=== PATIENT | female | born 1960 | race African-American/Black ===

== ENCOUNTER 2017-08-28 21:14 | Emergency (ER) | payer OTHER ==
[~2017-08-28] VITALS: Ht 154.9 cm; Wt 89.4 kg
[2017-08-28 22:19] LABS: ABSOLUTE BASOPHIL COUNT 0 /CUMM (0.0-0.2); ABSOLUTE EOSINOPHIL COUNT 0.1 /CUMM (0.0-0.7); ABSOLUTE LYMPH COUNT 1.7 /CUMM (1.2-3.4); ABSOLUTE MONOCYTE COUNT 0.5 /CUMM (0.10-0.60); BASOPHIL % 0.6 % (0.0-2.0); EOSINOPHIL % 1.9 % (0-5); GRANULOCYTE % 46.1 % (42.2-75.2); HEMATOCRIT 38.2 % (37-47); MEAN CORPUSCULAR HGB CONC 32.8 G/DL (33.0-37.0); MEAN CORPUSCULAR VOLUME 88.4 FL (81.0-99.0); MEAN PLATELET VOLUME 8.1 FL (7.4-10.4); PLATELET COUNT 280 /CUMM (130-400); RBC DISTRIBUTION WIDTH 14.4 % (11.5-14.5); RED BLOOD CELL CT 4.31 /CUMM (4.20-5.40); WHITE BLOOD CELL COUNT 4.4 /CUMM (4.8-10.8)
--- NOTE | 2017-08-28 23:29 | ED GENERAL ADULT ---
History of Present Illness General Chief Complaint: General Adult Stated Complaint: HIGH BLOOD PRESSURE Source: patient, old records Exam Limitations: no limitations Vital Signs & Intake/Output Vital Signs & Intake/Output Vital Signs Date Time Temp Pulse Resp B/P B/P Pulse O2 O2 Flow FiO2 Mean Ox Delivery Rate 08/29 0017 97 Room Air 08/28 2348 97.8 79 20 167/86 96 Room Air 08/28 2144 99.0 90 18 175/95 97 Room Air ED Intake and Output 08/29 0000 08/28 1200 Intake Total Output Total Balance Patient 197 lb Weight Weight Reported by Patient Measurement Method Allergies Coded Allergies: No Known Allergies (08/28/17) Triage Note: 57F STATES "MY BLOOD PRESSURE KEEPS GOING UP" 160/93 REPORTED HIGHEST. TAKES BENICAR AND BYSTOLIC, LAST TAKEN TODAY. DENIES SOB, +DISCOMFORT TO CHEST. DENIES N/V/D. DENIES FEVERS/CHILLS. DENIES HEADACHE, CHANGE IN VISION OR DIZZINESS. FOCAL NEUROS INTACT. SEES DR OZUNA PT IS HIV+. Triage Nurses Notes Reviewed? yes Onset: Abrupt Duration: day(s): (1), constant Timing: recent history Injury Environment: home Severity: mild Severity Numbers: 1 No Modifying Factors: none Associated Symptoms: denies HPI: 57-year-old female history of hypertension diabetes HIV presents to ER for evaluation stating that she took her blood pressure tonight and it was systolic 160s to 170s. She states she's been compliant with taking her Benicar and bySystolic twice a day she took her dose prior to coming in tonight. The patient states that it normally is 120 to 130 systolic but over the past few days it is been high after she was changed to the generic form of these medications. She also states over this weekend she has been eating very healthy including seafood soy sauce and soups. She denies any chest pain shortness of breath blurry vision headache nausea vomiting numbness or tingling or weakness to her extremities she is otherwise without any complaints currently. (Balbina HARVEY,Cristopher) Past History Travel History Traveled to [place] past 21 day No Medical History Any Pertinent Medical History? see below for history Neurological: NONE EENT: NONE Cardiovascular: hypertension Respiratory: NONE Gastrointestinal: NONE Hepatic: NONE Renal: NONE Musculoskeletal: NONE Psychiatric: NONE Endocrine: diabetes Surgical History Surgical History: none Psychosocial History What is your primary language Swazi Tobacco Use: Never used ETOH Use: denies use Illicit Drug Use: denies illicit drug use Family History Hx Contributory? No (Cristopher Schreiber) Review of Systems Review of Systems Constitutional: Reports: see HPI. Comments Review of systems: See HPI, All other systems negative. Constitutional, no chills no fever, HEENT: no sore throat no congestion, no ear pain Cardiovascular: No chest pain , no palpitation Skin: no rashes, no change in skin Respiratory: No dyspnea no cough no sputum no hemoptysis GI: No nausea no vomiting, no diarrhea, no bloating/constipation : No dysuria No hematuria, no frequency Muscle skeletal: No joint pain, no back pain, no neck pain, Neurologic: , no headache Psych: No stress Heme/endocrine: No bruising Immunology: No lymphadenopathy (Cristopher Schreiber) Physical Exam Physical Exam General Appearance: well developed/nourished, no apparent distress, alert Comments: Well-developed well-nourished person in no acute distress HEENT: Normal EENT exam; PERRL, EOMI, no papilledema HEAD is atraumatic. moist mucous membranes. Neck: Supple, normal range of motion Back: Nontender, no CVA tenderness. Full range of motion Cardiovascular: Regular rate and rhythms no murmurs rub Respiratory: No respiratory distress. Patient speaking in full complete sentences. Breath sounds clear to auscultation bilaterally: NO W/R/R Abdomen: Soft, nontender Extremity: No edema, full range of motion of extremities Neuro: Alert oriented x3, motor sensory normal, There were no obvious focal neurologic abnormalities. Skin: No appreciable rash on exposed skin, skin is warm and dry. Psych: Mood and affect is normal, memory and judgment is normal. Core Measures ACS in differential dx? Yes CVA/TIA Diagnosis: No Sepsis Present: No Sepsis Focused Exam Completed? No (Cristopher Schreiber) Progress Differential Diagnoses I considered the following diagnoses in my evaluation of the patient: Hypertensive urgency versus emergency, acute DE, likely slight abnormality Plan of Care: Orders Procedure Date/time Status TROPONIN LEVEL 08/28 2127 Complete LIPASE 08/28 2127 Complete HEPATIC FUNCTION PANEL 08/28 2127 Complete CBC WITHOUT DIFFERENTIAL 08/28 2127 Complete BASIC METABOLIC PANEL 08/28 2127 Complete AMYLASE 08/28 2127 Complete EKG 08/28 2127 Active Laboratory Tests 08/28/17 2200: Anion Gap 12, Estimated GFR > 60, BUN/Creatinine Ratio 18.9, Glucose 105 H, Calcium 9.5, Total Bilirubin < 0.1 L, Direct Bilirubin < 0.1, AST 18, ALT 34, Alkaline Phosphatase 59, Troponin I < 0.01, Total Protein 7.0, Albumin 4.3, Amylase 67, Lipase 118, CBC w Diff NO MAN DIFF REQ, RBC 4.31, MCV 88.4, MCH 29.0 , MCHC 32.8 L, RDW 14.4, MPV 8.1, Gran % 46.1, Lymphocytes % 39.3, Monocytes % 12.1 H, Eosinophils % 1.9, Basophils % 0.6, Absolute Granulocytes 2.0, Absolute Lymphocytes 1.7, Absolute Monocytes 0.5, Absolute Eosinophils 0.1, Absolute Basophils 0 Labs ordered from triage patient offers no complaints at this time there is no chest pain shortness of breath, repeat blood pressure 160 systolic advised that she double her by have close follow-up with her primary care physician this week return precautions were discussed however if her blood pressure remains high to return immediately or if she has any other concerns including pain. Phuong feels comfortable this plan cleared for discharge systolic tomorrow and Tuesday and Initial ED EKG: normal intervals, normal p-waves, normal QRS complex, normal sinus rhythm (Cristopher Schreiber) Departure Departure Time of Disposition: 2339 Disposition: HOME OR SELF CARE Condition: Stable Clinical Impression Primary Impression: Hypertension Referrals: Helena Ring MD (PCP/Family) Additional Instructions: Take your medications as discussed: Continue taking the same dose of your Benicar however take 10 mg of bysystolic twice a day. Continue check your blood pressures once a day and follow-up with your primary care physician tomorrow. Return anytime sooner if he had persistently elevated blood pressures were any other concerns. Departure Forms: Customer Survey General Discharge Information (Cristopher Schreiber) PA/INCIDENT RESPONSE MANAGER Co-Sign Statement Statement: ED Attending supervision documentation- [] I saw and evaluated the patient. I have also reviewed all the pertinent lab results and diagnostic results. I agree with the findings and the plan of care as documented in the PA's/INCIDENT RESPONSE MANAGER's documentation. [X] I have reviewed the ED Record and agree with the PA's/INCIDENT RESPONSE MANAGER's documentation. [] Additions or exceptions (if any) to the PAs/INCIDENT RESPONSE MANAGER's note and plan are summarized below: [] (Festus GARNER,Toni Mims) Critical Care Note Critical Care Note Critical Care Time: non-applicable (Balbina HARVEY,Cristopher)
[2017-08-28 23:48] VITALS: BP 167/86
== END 2017-08-29 00:19 ==
LOC: ERH 21:14
PROVIDERS: Pediatrics
DX: I10 Essential (primary) hypertension (principal)
CPT/HCPCS: 93005; 93010

== ENCOUNTER 2017-12-09 22:05 | Emergency (ER) | payer OTHER ==
[~2017-12-09] VITALS: Ht 154.9 cm; Wt 89.8 kg
[2017-12-09 22:21] VITALS: BP 154/96
[2017-12-09] MEDS ORDERED: CYCLOBENZAPRINE10 M1 PO (22:45)
[2017-12-09] MEDS ORDERED: IBUPROFEN800 M1 PO (22:45)
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
== END 2017-12-09 23:18 ==
LOC: ERH 22:05
DX: S16.1XXA Strain of muscle, fascia and tendon at neck level, initial encounter (principal); S39.012A Strain of muscle, fascia and tendon of lower back, initial encounter; V49.40XA Driver injured in collision with unspecified motor vehicles in traffic accident, initial encounter; Y92.410 Unspecified street and highway as the place of occurrence of the external cause